=== PATIENT | male | born 1960 | race Caucasian/White ===

== ENCOUNTER 2022-09-21 06:29 | Emergency (ER) | payer MEDICARE ==
[~2022-09-21] VITALS: Ht 180.3 cm; Wt 90.0 kg
[~2022-09-21 06:29] MED LIST: BACL-11 PO
[2022-09-21] MEDS ORDERED: ondansetron/PF 4mg/2ml inj IV ONE (08:35)
[2022-09-21] MEDS ORDERED: morphine 4 MG/ML inj SYRINge IV ONE (08:35)
[2022-09-21 09:17] LABS: BASOPHILS % (AUTO) 0.3 % (0-1); EOSINOPHILS # (AUTO) 0.1 X10'3 (0-0.9); EOSINOPHILS % (AUTO) 1.5 % (0-6); HEMATOCRIT 41.2 % (42.0-52.0); HEMOGLOBIN 13.8 g/dl (14.0-17.9); LYMPHOCYTES # (AUTO) 1.1 X10'3 (1.1-4.8); LYMPHOCYTES % (AUTO) 23.5 % (21-51); MEAN CORPUSCULAR HEMOGLOBIN 30.2 PG (27.0-31.0); MEAN CORPUSCULAR HGB CONC 33.4 g/dL (33.0-36.5); MEAN CORPUSCULAR VOLUME 90.2 FL (78-98); MEAN PLATELET VOLUME 9.1 FL (7.4-10.4); MONOCYTES # (AUTO) 0.5 X10'3 (0-0.9); MONOCYTES % (AUTO) 10.6 % (2-12); NEUTROPHILS % (AUTO) 64.1 % (42-75); PLATELET COUNT 86 X10'3 (140-440); RED BLOOD COUNT 4.57 X10'6 (4.70-6.10); RED CELL DISTRIBUTION WIDTH 15.1 % (11.5-14.5); WHITE BLOOD COUNT 4.7 X10'3 (4.5-11.0)
[2022-09-21 09:23] LABS: APTT 28 SECONDS (22-32)
[2022-09-21 09:24] LABS: ALANINE AMINOTRANSFERASE 54 U/L (12-78); ALBUMIN 3.8 G/DL (3.4-5.0); ALBUMIN/GLOBULIN RATIO 1.2 (1.1-1.5); ALKALINE PHOSPHATASE 86 IU/L (46-116); ANION GAP 10 (8-16); ASPARTATE AMINO TRANSFERASE 32 U/L (10-37); BILIRUBIN,TOTAL 0.9 MG/DL (0.1-1.0); BLOOD UREA NITROGEN 15 MG/DL (7-18); BUN/CREATININE RATIO 14.3 (10.0-20.0); CALCIUM 8.6 MG/DL (8.5-10.1); CHLORIDE 110 MMOL/L (99-107); CREATINE KINASE 477 U/L (39-308); CREATININE 1.05 MG/DL (0.60-1.10); GLUCOSE 105 MG/DL (70-104); POTASSIUM 4.1 MMOL/L (3.5-5.1); SODIUM 143 MMOL/L (135-145); TOTAL CARBON DIOXIDE 22.7 MMOL/L (24-32); eGFR 72 ML/MIN
[2022-09-21] MEDS ORDERED: IBUP-1985 PO (09:42)
[2022-09-21] MEDS ORDERED: HYDR-3965 PO (09:42)
[2022-09-21 10:10] VITALS: BP 132/78
== END 2022-09-21 10:12 | disposition home or self-care (01) ==
LOC: ER 06:30
DX: S70.11XA Contusion of right thigh, initial encounter (principal); Z79.899 Other long term (current) drug therapy; W18.39XA Other fall on same level, initial encounter; Y93.89 Activity, other specified; Y92.89 Other specified places as the place of occurrence of the external cause; Y99.8 Other external cause status
CPT/HCPCS: 76881; 80053; 82550; 85025; 85610; 85730; 96374; 96375; 99285; J2270; J2405

== ENCOUNTER 2023-07-14 19:49 | Inpatient (IN) | payer MEDICARE ==
[~2023-07-14] VITALS: Ht 180.3 cm; Wt 85.7 kg
[~2023-07-14 19:49] MED LIST changes: +IBUP-1985 PO
[2023-07-14] MEDS ORDERED: iohexol 350MG/ML 100ml bottle IV ONE (20:14)
[2023-07-14 20:19] LABS: BASOPHILS % (AUTO) 0.3 % (0-1); EOSINOPHILS # (AUTO) 0.1 X10'3 (0-0.9); EOSINOPHILS % (AUTO) 0.8 % (0-6); HEMATOCRIT 44.6 % (42.0-52.0); HEMOGLOBIN 15.4 g/dl (14.0-17.9); LYMPHOCYTES # (AUTO) 1.4 X10'3 (1.1-4.8); LYMPHOCYTES % (AUTO) 16.3 % (21-51); MEAN CORPUSCULAR HEMOGLOBIN 30.2 PG (27.0-31.0); MEAN CORPUSCULAR HGB CONC 34.4 g/dL (33.0-36.5); MEAN CORPUSCULAR VOLUME 87.7 FL (78-98); MEAN PLATELET VOLUME 8.2 FL (7.4-10.4); MONOCYTES # (AUTO) 0.7 X10'3 (0-0.9); MONOCYTES % (AUTO) 8.8 % (2-12); NEUTROPHILS # (AUTO) 6.2 X10'3 (1.8-7.7); NEUTROPHILS % (AUTO) 73.8 % (42-75); PLATELET COUNT 110 X10'3 (140-440); RED BLOOD COUNT 5.09 X10'6 (4.70-6.10); RED CELL DISTRIBUTION WIDTH 15.3 % (11.5-14.5); WHITE BLOOD COUNT 8.4 X10'3 (4.5-11.0)
[2023-07-14] MEDS ORDERED: iohexol 300mg/ml 100ml inj. ONE (20:33)
[2023-07-14 20:34] LABS: APTT 25 SECONDS (22-32); INR 1.1 INR; PROTHROMBIN TIME 11.6 SECONDS (9.0-12.0)
[2023-07-14] MEDS: morphine 10mg/ml inj. IV ONE ×3 (20:39→23:31)
[2023-07-14 20:45] LABS: ALANINE AMINOTRANSFERASE 76 U/L (12-78); ALBUMIN 4.3 G/DL (3.4-5.0); ALBUMIN/GLOBULIN RATIO 1.3 (1.1-1.5); ALKALINE PHOSPHATASE 78 IU/L (46-116); ANION GAP 11 (8-16); ASPARTATE AMINO TRANSFERASE 46 U/L (10-37); BILIRUBIN,TOTAL 1.1 MG/DL (0.1-1.0); BLOOD UREA NITROGEN 26 MG/DL (7-18); BUN/CREATININE RATIO 19.3 (10.0-20.0); CALCIUM 9.2 MG/DL (8.5-10.1); CHLORIDE 110 MMOL/L (99-107); CREATININE 1.35 MG/DL (0.60-1.10); GLUCOSE 151 MG/DL (70-104); POTASSIUM 3.5 MMOL/L (3.5-5.1); SODIUM 145 MMOL/L (135-145); TOTAL CARBON DIOXIDE 24.4 MMOL/L (24-32); TOTAL PROTEIN 7.7 G/DL (6.4-8.2); eCRCL 60 ML/MIN; eGFR 54 ML/MIN
[2023-07-14] MEDS: ondansetron/PF 4mg/2ml inj IV ONE (20:49)
[2023-07-14] MEDS: normal saline 1000ml 1,000 ML IV ONE ×2 (20:49)
[2023-07-14 20:56] LABS: AMYLASE 52 U/L (25-115); CKMB RELATIVE INDEX 0.9 RATIO (0-2.5); CREATINE KINASE 340 U/L (39-308); CREATINE KINASE MB 3.1 ng/ml (0.3-3.6); ETHANOL < 10 MG/DL (<10); LIPASE 60 U/L (16-77)
[2023-07-14 21:15] LABS: BILIRUBIN,URINE NEGATIVE (Neg); CLARITY,URINE CLEAR (Clear); COLOR,URINE YELLOW (Yellow); GLUCOSE, URINE NEGATIVE (Neg); KETONES,URINE NEGATIVE (Neg); LEUKOCYTE ESTERASE ,URINE NEGATIVE (Neg); NITRITES, URINE NEGATIVE (Neg); OCCULT BLOOD,URINE NEGATIVE (Neg); PH,URINE 6.5 (4.8-8.0); PROTEIN,URINE 30 mg/dl (Neg); UROBILINOGEN,URINE 0.2 E.U/dL (0.2-1.0)
[2023-07-14 21:21] LABS: UA COLLECTION TYPE CLN CATCH MIDSTREAM
[2023-07-14 21:22] LABS: HYALINE CASTS 0-3 /LPF (NEGATIVE); SQUAMOUS EPITHELIAL CELL,UR NONE SEEN /LPF (FEW)
[2023-07-14 21:23] LABS: BACTERIA,URINE NONE SEEN /HPF (Neg); RBC,URINE NONE SEEN /HPF (0-2); WBC,URINE 0-4 /HPF (0-4)
[2023-07-14 21:27] LABS: TOTAL CELLS COUNTED 100
[2023-07-14 21:28] LABS: PLATELET ESTIMATE DECREASED
[2023-07-14 21:29] LABS: ANISOCYTOSIS FEW
[2023-07-14 21:31] LABS: URINE AMPHETAMINE SCREEN NEGATIVE (Neg); URINE BARBITUATE SCREEN NEGATIVE (Neg); URINE BENZODIAZEPINES SCREEN NEGATIVE (Neg); URINE CANNABINOID SCREEN NEGATIVE (Neg); URINE COCAINE SCREEN NEGATIVE (Neg); URINE METHADONE SCREEN NEGATIVE (Neg); URINE OPIATE SCREEN POSITIVE (Neg); URINE PHENCYCLIDINE SCREEN NEGATIVE (Neg)
[2023-07-14] MEDS ORDERED: TOPI25TA15 PO (22:20)
[2023-07-14] MEDS ORDERED: LEVE750T6 PO (22:20)
[2023-07-15] MEDS ORDERED: magnesium Cl slow-release 64mg tablet PO PRN (00:15)
[2023-07-15] MEDS ORDERED: mag hydrox/Alum hydrox/simeth 30ml oral suspension PO PRN (00:15)
[2023-07-15] MEDS ORDERED: potassium Cl 40MEQ/1/2NS 520ml 520 ML IV PRN (00:15)
[2023-07-15] MEDS ORDERED: morphine 2 MG/ML inj. syringe IV PRN ×3 (00:15→01:00)
[2023-07-15] MEDS ORDERED: magnesium 4gm in 100ml NS 100 ML IV PRN (00:15)
[2023-07-15] MEDS ORDERED: potassium Cl 20 mEq SR tablet PO PRN ×2 (00:15)
[2023-07-15] MEDS ORDERED: ondansetron/PF 4mg/2ml inj IV PRN (00:15)
[2023-07-15] MEDS ORDERED: magnesium 2GM in 50ml NS 50 ML IV PRN (00:15)
[2023-07-15] MEDS ORDERED: acetaminophen 325mg tablet PO PRN (00:15)
[2023-07-15] MEDS ORDERED: magnesium hydroxide 30ml (MOM) UD suspension PO PRN (00:15)
[2023-07-15] MEDS: temazepam 15mg capsule PO ONE (01:09)
[2023-07-15] MEDS: HYDROcodone/acetaminophen 10/325mg tab PO PRN (01:09)
[2023-07-15] MEDS: normal saline 1000ml 1,000 ML IV SCH (01:46)
[2023-07-15] MEDS: morphine 2 MG/ML inj. syringe IV PRN (03:12)
[2023-07-15] MEDS: HYDROcodone/acetaminophen 5mg/325mg tablet PO PRN (04:48)
[2023-07-15 05:30] VITALS: BP 130/85; PULSE 57; RESP 13; TEMP 98.9; O2SAT 96
[2023-07-15] MEDS: ibuprofen tablet 400 MG TABLET PO SCH (07:40)
[2023-07-15] MEDS: levetiracetam 250mg tablet PO SCH (07:41)
[2023-07-15] MEDS: topiramate 25mg tablet PO SCH (07:41)
[2023-07-15 08:00] VITALS: RESP 16; O2SAT 95
[2023-07-15] MEDS ORDERED: heparin, porcine 5000 units/ml vial SQ SCH (08:00)
[2023-07-15] MEDS: K and/or MAG REPLACEMENT MC SCH (08:00)
[2023-07-15 11:36] VITALS: RESP 14
[2023-07-15 12:01] LABS: EOSINOPHILS # (AUTO) 0.1 X10'3 (0-0.9); LYMPHOCYTES # (AUTO) 1.8 X10'3 (1.1-4.8); WHITE BLOOD COUNT 7.5 X10'3 (4.5-11.0)
[2023-07-15 12:03] LABS: BASOPHILS % (AUTO) 0.6 % (0-1); EOSINOPHILS % (AUTO) 1.5 % (0-6); HEMOGLOBIN 14.8 g/dl (14.0-17.9); LYMPHOCYTES % (AUTO) 23.9 % (21-51); MEAN CORPUSCULAR HGB CONC 33.7 g/dL (33.0-36.5); MEAN CORPUSCULAR VOLUME 89.3 FL (78-98); MEAN PLATELET VOLUME 8.7 FL (7.4-10.4); MONOCYTES # (AUTO) 0.9 X10'3 (0-0.9); MONOCYTES % (AUTO) 12.4 % (2-12); NEUTROPHILS # (AUTO) 4.6 X10'3 (1.8-7.7); NEUTROPHILS % (AUTO) 61.6 % (42-75); PLATELET COUNT 116 X10'3 (140-440); RED BLOOD COUNT 4.93 X10'6 (4.70-6.10); RED CELL DISTRIBUTION WIDTH 15.6 % (11.5-14.5)
[2023-07-15 12:10] LABS: ALANINE AMINOTRANSFERASE 72 U/L (12-78); ALBUMIN 4.1 G/DL (3.4-5.0); ALBUMIN/GLOBULIN RATIO 1.2 (1.1-1.5); ALKALINE PHOSPHATASE 68 IU/L (46-116); ANION GAP 12 (8-16); ASPARTATE AMINO TRANSFERASE 56 U/L (10-37); BILIRUBIN,TOTAL 1.4 MG/DL (0.1-1.0); BLOOD UREA NITROGEN 18 MG/DL (7-18); BUN/CREATININE RATIO 16.4 (10.0-20.0); CALCIUM 8.4 MG/DL (8.5-10.1); CHLORIDE 111 MMOL/L (99-107); GLUCOSE 122 MG/DL (70-104); POTASSIUM 3.6 MMOL/L (3.5-5.1); SODIUM 145 MMOL/L (135-145); TOTAL CARBON DIOXIDE 21.8 MMOL/L (24-32); TOTAL PROTEIN 7.4 G/DL (6.4-8.2); eCRCL 74 ML/MIN; eGFR 68 ML/MIN
[2023-07-15 12:18] LABS: CREATINE KINASE 910 U/L (39-308)
[2023-07-15] MEDS ORDERED: ACET-1008 PO (13:31)
[2023-07-15] MEDS ORDERED: HYDR-3965 PO (13:31)
== END 2023-07-15 14:00 | disposition home or self-care (01) | DRG 155 ==
LOC: ER 19:49 → ED HOLD 07-15 00:16 → PCU 3S 07-15 05:10
PROVIDERS: ADMIT Internal Medicine; ATTEND Internal Medicine
PROC: BW251ZZ Computerized Tomography (CT Scan) of Chest, Abdomen and Pelvis using Low Osmolar Contrast (ICD-10-PCS; principal; 2023-07-14)
PROC: B3251ZZ Computerized Tomography (CT Scan) of Bilateral Common Carotid Arteries using Low Osmolar Contrast (ICD-10-PCS; 2023-07-14)
PROC: B32G1ZZ Computerized Tomography (CT Scan) of Bilateral Vertebral Arteries using Low Osmolar Contrast (ICD-10-PCS; 2023-07-14)
PROC: B32R1ZZ Computerized Tomography (CT Scan) of Intracranial Arteries using Low Osmolar Contrast (ICD-10-PCS; 2023-07-14)
PROC: B3281ZZ Computerized Tomography (CT Scan) of Bilateral Internal Carotid Arteries using Low Osmolar Contrast (ICD-10-PCS; 2023-07-14)
DX: S02.2XXA Fracture of nasal bones, initial encounter for closed fracture (principal); N17.9 Acute kidney failure, unspecified; S20.219A Contusion of unspecified front wall of thorax, initial encounter; S80.10XA Contusion of unspecified lower leg, initial encounter; S30.1XXA Contusion of abdominal wall, initial encounter; D69.6 Thrombocytopenia, unspecified; R58 Hemorrhage, not elsewhere classified; W55.29XA Other contact with cow, initial encounter; Y93.89 Activity, other specified; Y92.89 Other specified places as the place of occurrence of the external cause; Y99.8 Other external cause status; Z79.899 Other long term (current) drug therapy
CPT/HCPCS: 36415; 70450; 70496; 70498; 71260; 73590; 74177; 80053; 80305; 80320; 81001; 82150; 82550; 82553; 83690; 84145; 84484; 85007; 85025; 85610; 85651; 85730; 86885; 86900; 86901; 87081; 93005; 99285; A4620; A6222; A6449; G0378; J2270; J2274; J2405; J3490; J7030; Q9967